=== PATIENT | male | born 1965 | race Caucasian/White ===

== ENCOUNTER 2019-01-05 09:44 | Inpatient (IN) | payer OTHER ==
[2019-01-05 09:44] VITALS: BMI 23.8
--- NOTE | 2019-01-05 10:24 | C.PDOC ---
History Of Present Illness 53-year-old male presents to the ED complaining of worsening right knee pain, onset 6 days ago. Patient states he fell onto his right knee on 12/30/18, and since has had knee pain and been unable to walk. [place] [facility] [place] x- [place] and was told it was negative. Patient continued to have pain and saw his PMD, Dr. Haider Olivares who sent him for outpatient MRI. Per patient, he was told to come to this ED for hospital admission. He is unsure of other history. No other injuries. Patient otherwise denies any chest pain, SOB, fevers, chills, or other complaints. Time Seen by Provider: 01/05/19 10:05 Chief Complaint (Nursing): Lower Extremity Problem/Injury History Per: Patient History/Exam Limitations: no limitations Onset/Duration Of Symptoms: Days Current Symptoms Are (Timing): Still Present Past Medical History Reviewed: Historical Data, Nursing Documentation, Vital Signs Vital Signs: Last Vital Signs Temp 98.1 F 01/05/19 09:47 Pulse 122 H 01/05/19 09:47 Resp 20 01/05/19 09:47 BP 185/98 H 01/05/19 09:47 Pulse Ox 99 01/05/19 09:47 - Medical History PMH: Diabetes, Pneumonia Family History: States: Unknown Family Hx - Social History Hx Tobacco Use: No Hx Alcohol Use: No Hx Substance Use: No - Immunization History Hx Tetanus Toxoid Vaccination: No Hx Influenza Vaccination: No Hx Pneumococcal Vaccination: No Review Of Systems Constitutional: Negative for: Fever, Chills Cardiovascular: Negative for: Chest Pain Respiratory: Negative for: Shortness of Breath Musculoskeletal: Positive for: Leg Pain (right knee) Skin: Negative for: Rash Neurological: Negative for: Weakness, Numbness Physical Exam - Physical Exam Appears: Well, Non-toxic, No Acute Distress Skin: Warm, Other (Vitiligo) Head: Atraumatic, Normacephalic Eye(s): bilateral: Normal Inspection Oral Mucosa: Moist Neck: Normal ROM Chest: Symmetrical Cardiovascular: Rhythm Regular, No Murmur Respiratory: Normal Breath Sounds, No Rales, No Rhonchi, No Wheezing Gastrointestinal/Abdominal: Bowel Sounds (active), Soft, No Tenderness, No Guarding Extremity: Right: Other (Right knee with immobilizer in place, no apparent ecchymosis, (+) mild swelling anteriorly), Bilateral: Normal Color And Temperature Pulses: Left Dorsalis Pedis: Normal, Right Dorsalis Pedis: Normal Neurological/Psych: Oriented x3, Normal Speech Gait: Unable To Assess ED Course And Treatment - Laboratory Results Result Diagrams: 01/05/19 11:09 01/05/19 11:09 ECG: Interpreted By Me ECG Rhythm: Sinus Rhythm ECG Interpretation: Normal Rate From EC O2 Sat by Pulse Oximetry: 99 (RA) Pulse Ox Interpretation: Normal Medical Decision Making Medical Decision Making: Impression: Right knee pain Plan: Patient assessed and examined. Orders placed in for blood work and EKG. Urine collected and sent to lab for analysis. Progress: 10:[address] Haider Olivares, who states patient has a patellar fracture. Requesting MRI and hospitalization, with Dr. Mensah for ortho consult. Disposition - Disposition Disposition: HOSPITALIZED Disposition Time: 12:15 Condition: STABLE - POA Present On Arrival: None - Clinical Impression Clinical Impression: Right patella fracture - PA / SKI MOLDER / Resident Statement MD/DO has reviewed & agrees with the documentation as recorded. - Scribe Statement The provider has reviewed the documentation as recorded by the Scribe Ann Marie Mccann All medical record entries made by the Adamibroberto were at my direction and personally dictated by me. I have reviewed the chart and agree that the record accurately reflects my personal performance of the history, physical exam, medical decision making, and the department course for this patient. I have also personally directed, reviewed, and agree with the discharge instructions and disposition.
[2019-01-05 11:19] LABS: BASO # 0.1 K/uL (0.0-0.2); BASO % 0.6 % (0.0-2.0); EOS # 0.2 K/uL (0.0-0.7); EOS % 2.2 % (0.0-4.0); HEMOGLOBIN 14.1 g/dL (12.0-18.0); LYMPH # 1.3 K/uL (1.0-4.3); LYMPH % 13.3 % (20.0-40.0); MEAN CELL VOLUME 81.8 fL (80.0-94.0); MEAN CORPUSCULAR HEMOGLOBIN 26.7 pg (27.0-31.0); MEAN CORPUSCULAR HGB CONC 32.7 g/dL (33.0-37.0); MEAN PLATELET VOLUME 8.8 fL (7.2-11.7); MONO # 0.6 K/uL (0.0-0.8); MONO % 5.7 % (0.0-10.0); NEUT # 7.7 K/uL (1.8-7.0); NEUT % 78.2 % (50.0-75.0); NRBC % 0.1 % (0.0-2.0); RBC 5.26 Mil/uL (4.40-5.90); RED CELL DISTRIBUTION WIDTH 13.9 % (11.5-14.5); WHITE BLOOD COUNT 9.9 K/uL (4.8-10.8)
[2019-01-05 11:22] LABS: SQUAMOUS EPITHIAL < 1 /hpf (0-5); URINE BILIRUBIN NEGATIVE (NEGATIVE); URINE BLOOD NEGATIVE (NEGATIVE); URINE CLARITY Clear (Clear); URINE COLOR Yellow (YELLOW); URINE GLUCOSE (UA) 3+ mg/dL (Normal); URINE LEUKOCYTE ESTERASE NEG Leu/uL (Negative); URINE PROTEIN NEGATIVE (NEGATIVE); URINE UROBILINOGEN NORMAL mg/dL (0.2-1.0)
[2019-01-05 11:43] LABS: ALB/GLOB RATIO 1.5 (1.0-2.1); ALBUMIN 4.5 g/dL (3.5-5.0); ALT/SGPT 16 U/L (21-72); AST/SGOT 21 U/L (17-59); BLOOD UREA NITROGEN 14 mg/dL (9-20); CALCIUM 10.1 mg/dl (8.6-10.4); GFR NON-AFRICAN AMERICAN > 60
--- NOTE | 2019-01-05 15:04 | CP.PCM.HP ---
Past Patient History - Infectious Disease Hx of Infectious Diseases: None - Past Medical History & Family History Past Medical History?: Yes - Past Social History Smoking Status: Never Smoked - PULMONARY Hx Pneumonia: Yes - ENDOCRINE/METABOLIC Hx Diabetes Mellitus Type 2: Yes - HEMATOLOGICAL/ONCOLOGICAL Hx Cancer: Yes (lung) - MUSCULOSKELETAL/RHEUMATOLOGICAL Hx Falls: No - PSYCHIATRIC Hx Substance Use: No - SURGICAL HISTORY Hx Surgeries: No - ANESTHESIA Hx Anesthesia: No Hx Anesthesia Reactions: No Meds Allergies/Adverse Reactions: Allergies Allergy/AdvReac Type Severity Reaction Status Date / Time No Known Allergies Allergy Verified 01/05/19 09:49 Physical Exam - Constitutional Appears: Well - Head Exam Head Exam: ATRAUMATIC, NORMAL INSPECTION, NORMOCEPHALIC - Eye Exam Eye Exam: EOMI, Normal appearance, PERRL Pupil Exam: NORMAL ACCOMODATION, PERRL - ENT Exam ENT Exam: Mucous Membranes Moist, Normal Exam - Neck Exam Neck exam: Positive for: Normal Inspection - Respiratory Exam Respiratory Exam: Decreased Breath Sounds - Cardiovascular Exam Cardiovascular Exam: REGULAR RHYTHM, +S1, +S2 - GI/Abdominal Exam GI & Abdominal Exam: Diminished Bowel Sounds, Soft - Rectal Exam Rectal Exam: Deferred Results - Vital Signs Recent Vital Signs: Last Vital Signs Temp 98.0 F 01/05/19 14:50 Pulse 90 01/05/19 14:50 Resp 20 01/05/19 14:50 BP 145/87 01/05/19 14:50 Pulse Ox 98 01/05/19 14:50 - Labs Result Diagrams: 01/05/19 11:09 01/05/19 11:09 Labs: Laboratory Results - last 24 hr 01/05/19 01/05/19 01/05/19 11:09 11:09 11:09 WBC 9.9 RBC 5.26 Hgb 14.1 Hct 43.0 MCV 81.8 D MCH 26.7 L MCHC 32.7 L RDW 13.9 Plt Count 286 MPV 8.8 Neut % (Auto) 78.2 H Lymph % (Auto) 13.3 L Teller % (Auto) 5.7 Eos % (Auto) 2.2 Baso % (Auto) 0.6 Neut # (Auto) 7.7 H Lymph # (Auto) 1.3 Teller # (Auto) 0.6 Eos # (Auto) 0.2 Baso # (Auto) 0.1 PT 11.0 INR 1.0 APTT 36 H Sodium Potassium Chloride Carbon Dioxide Anion Gap BUN Creatinine Est GFR ( Amer) Est GFR (Non-Af Amer) Random Glucose Calcium Total Bilirubin AST ALT Alkaline Phosphatase Total Protein Albumin Globulin Albumin/Globulin Ratio Urine Color Yellow Urine Clarity Clear Urine pH 5.0 Ur Specific Waldron 1.020 Urine Protein Negative Urine Glucose (UA) 3+ H Urine Ketones Trace Urine Blood Negative Urine Nitrate Negative Urine Bilirubin Negative Urine Urobilinogen Normal Ur Leukocyte Esterase Neg Urine WBC (Auto) 2 Urine RBC (Auto) < 1 Ur Squamous Epith Cells < 1 Blood Type Antibody Screen 01/05/19 01/05/19 11:09 11:09 WBC RBC Hgb Hct MCV MCH MCHC RDW Plt Count MPV Neut % (Auto) Lymph % (Auto) Teller % (Auto) Eos % (Auto) Baso % (Auto) Neut # (Auto) Lymph # (Auto) Teller # (Auto) Eos # (Auto) Baso # (Auto) PT INR APTT Sodium 136 Potassium 4.4 Chloride 101 Carbon Dioxide 23 Anion Gap 18 BUN 14 Creatinine 0.6 L Est GFR ( Amer) > 60 Est GFR (Non-Af Amer) > 60 Random Glucose 226 H Calcium 10.1 Total Bilirubin 0.5 AST 21 ALT 16 L D Alkaline Phosphatase 86 Total Protein 7.4 Albumin 4.5 Globulin 2.9 Albumin/Globulin Ratio 1.5 Urine Color Urine Clarity Urine pH Ur Specific [place]ron Urine Protein Urine Glucose (UA) Urine Ketones Urine Blood Urine Nitrate Urine Bilirubin Urine Urobilinogen Ur Leukocyte Esterase Urine WBC (Auto) Urine RBC (Auto) Ur Squamous Epith Cells Blood Type A POSITIVE Antibody Screen Negative
[2019-01-05] MEDS: Naproxen 550 mg Tab PO SCH (21:37)
[2019-01-06] MEDS: Naproxen 550 mg Tab PO SCH ×2 (09:15→21:20)
[2019-01-06] MEDS: Pantoprazole 40 mg EC Tab PO SCH (09:15)
[2019-01-06] MEDS ORDERED: Enoxaparin 40 mg Syringe SC SCH (10:00)
--- NOTE | 2019-01-06 12:43 | CARD ---
APPROVED REPORT Date of service: 01/05/2019 EKG Measurement Heart [id number] <Conclusion> Normal sinus rhythm Normal ECG
--- NOTE | 2019-01-06 15:56 | CP.PCM.CON ---
History of Present Illness - History of Present Illness History of Present Illness: Orthopedic consult: Dr. Maravilla Patient is a 53 y/o male who c/o R knee pain and instability. The patient reports a fall injury at home on 12/30/18 resulting in a severe twisting of his RLE. He was able to get up but unable to ambulate due his knee "coming out of place". He presented to [facility], xrays were taken negative for acute fracture and discharged with knee immobilizer to f/u with PMDIgnacio MD. Dr. Olivares sent him for MRI of his R knee. He presented to [facility] ER due to severe pain over past few days. The pain is diffuse and dull in quality. He denies any radiation of pain/numbness/tingling. He requires ambulation with crutches. He currently denies CP/SOB/N/V/D/fever/dysuria/melena. PMH: NIDDM, TB PSH: denies meds: as per med rec allergy NKDA SH: denies tobacco/ETOH/drug use Review of Systems - Review of Systems All systems: reviewed and no additional remarkable complaints except Review of Systems: as per HPI Past Patient History - Infectious Disease Hx of Infectious Diseases: None - Past Medical History & Family History Past Medical History?: Yes Past Family History: Reviewed and not pertinent - Past Social History Smoking Status: Never Smoked - CARDIAC Hx Cardiac Disorders: No - PULMONARY Hx Respiratory Disorders: Yes Hx Pneumonia: Yes Hx Tuberculosis: Yes - NEUROLOGICAL Hx Neurological Disorder: No - HEENT Hx HEENT Problems: No - RENAL Hx Chronic Kidney Disease: No - ENDOCRINE/METABOLIC Hx Endocrine Disorders: Yes Hx Diabetes Mellitus Type 2: Yes - HEMATOLOGICAL/ONCOLOGICAL Hx Blood Disorders: Yes Hx Cancer: Yes (lung) - INTEGUMENTARY Hx Dermatological Problems: No - MUSCULOSKELETAL/RHEUMATOLOGICAL Hx Falls: Yes - GASTROINTESTINAL Hx Gastrointestinal Disorders: No - GENITOURINARY/GYNECOLOGICAL Hx Genitourinary Disorders: No - PSYCHIATRIC Hx Substance Use: No - SURGICAL HISTORY Hx Surgeries: No - ANESTHESIA Hx Anesthesia: No Hx Anesthesia Reactions: No Hx Malignant Hyperthermia: No Has any member of the family had a problem w/ anesthesia?: No Meds Allergies/Adverse Reactions: Allergies Allergy/AdvReac Type Severity Reaction Status Date / Time No Known Allergies Allergy Verified 01/05/19 09:49 - Medications Medications: Current Medications Glimepiride (Amaryl) 4 mg PO ACB [facility] Last Admin: 01/06/19 08:30 Dose: 4 mg Hydromorphone HCl (Dilaudid) 2 mg IVP Q8H PRN PRN Reason: Pain, severe (8-10) Influenza Virus Vaccine (Flucelvax Quad [id number] Syr) 60 mcg IM .ONCE ONE Stop: 01/07/19 10:01 Metformin HCl (Glucophage) 850 mg PO BID [facility] Last Admin: 01/06/19 09:15 Dose: 850 mg Naproxen (Anaprox Ds) 550 mg PO Q12 [facility] Last Admin: 01/06/19 09:15 Dose: 550 mg Pantoprazole Sodium (Protonix Ec Tab) 40 mg PO DAILY [facility] Last Admin: 01/06/19 09:15 Dose: 40 mg Pneumococcal Polyvalent Vaccine (Pneumovax 23 Vaccine) 0.5 ml IM .ONCE ONE Stop: 01/07/19 10:01 Rosuvastatin Calcium (Crestor) 10 mg PO HS [facility] Last Admin: 01/05/19 21:23 Dose: 10 mg Sitagliptin Phosphate (Januvia) 100 mg PO DAILY [facility] Last Admin: 01/06/19 09:18 Dose: 100 mg Physical Exam - Constitutional Appears: Well, No Acute Distress - Head Exam Head Exam: ATRAUMATIC, NORMOCEPHALIC - Eye Exam Eye Exam: EOMI, Normal appearance - ENT Exam ENT Exam: Mucous Membranes Moist - Respiratory Exam Respiratory Exam: NORMAL BREATHING PATTERN - Extremities Exam Additional comments: R knee: knee imm in place no lesions/swelling/erythema diffuse medial tenderness, tenderness over distal quad, no lateral/patella/patella tendon tenderness +2 opening medially on valgus stress, no opening laterally + Lachmans, +anterior and posterior drawer sensation intact SP/DP/TN motor intact EHL/FHL/TA/G pedal pulse intact calves soft NT B/l L knee: no lesions/swelling/erythema no tenderness all ligaments intact sensation intact SP/DP/TN motor intact EHL/FHL/TA/G pedal pulse intact calves soft NT B/l - Neurological Exam Neurological exam: Alert, Oriented x3 - Psychiatric Exam Psychiatric exam: Normal Affect, Normal Mood - Skin Skin Exam: Normal Color, Warm Results - Vital Signs Recent Vital Signs: Last Vital Signs Temp 97.8 F 01/06/19 08:00 Pulse 79 01/06/19 08:00 Resp 20 01/06/19 08:00 BP 130/87 01/06/19 08:00 Pulse Ox 96 01/06/19 08:00 - Labs Result Diagrams: 01/05/19 11:09 01/05/19 11:09 Labs: Laboratory Results - last 24 hr 01/05/19 01/05/19 01/06/19 16:11 21:32 06:13 POC Glucose (mg/dL) 175 H 164 H 152 H 01/06/19 10:56 POC Glucose (mg/dL) 243 H - Impressions Impression: MRI from [facility] reveals multiligament complete rupture including ACL, PCL and MCL Assessment & Plan (1) Dislocation, knee Assessment and Plan: Patient with multi-ligament tears (ACL/PCL/MCL) -obtain postop hinged knee brace locked at 0 degrees, out sourced DME -CT angio of RLE to r/o arterial injury -NWB RLE, strict knee imm for now -no acute orthopedic surgical intervention needed at this time, ligament repairs can be performed as outpatient -above d/w Dr. Maravilla in agreement Status: Acute - Date & Time Date: 01/06/19 Time: 13:00
--- NOTE | 2019-01-06 16:19 | MRI ---
Date of service: 01/06/2019 PROCEDURE: MRI Right Knee HISTORY: Right knee injury evaluate for patellar fracture COMPARISON: No prior similar study available for comparison TECHNIQUE: Multiecho multiplanar sequences were performed through the right knee. FINDINGS: ANTERIOR CRUCIATE LIGAMENT:: There is complete tear of the anterior cruciate ligament. POSTERIOR CRUCIATE LIGAMENT:: There is also partial to complete tear of the posterior cruciate ligament MEDIAL MENISCUS:: Intact. LATERAL MENISCUS:: Small tear at the anterior aspect of the lateral meniscus body noted. MEDIAL COLLATERAL LIGAMENT:: There high-grade/grade 4 medial collateral ligament tear noted. LATERAL COLLATERAL LIGAMENT COMPLEX:: There is mild grade 1 lateral collateral ligament tear noted. QUADRICEPS TENDON:: Intact. PATELLAR TENDON:: Intact. CARTILAGE:: Moderate patellar chondromalacia and foci of cartilage defect noted in the knee. JOINT FLUID:: There is moderate-size joint effusion noted. OSSEOUS STRUCTURES:: No evidence of patellar fracture. Soft tissue edema noted at the mid and lateral aspect of the right tibial plateau to likely represent bone contusion. There also small bone marrow edema at the lateral femoral condyle. OTHER FINDINGS: There is thickening of the synovial tissue noted in the anterior aspect of the right knee joint. Heterogeneous signal in the of month fat is also noted. There is anom-ur-abyyisli soft tissue edema around the right knee. IMPRESSION: Complete tear of the anterior and posterior cruciate ligaments. Moderate-sized joint effusion. No evidence of bone marrow edema in the right patella. Foci of bone marrow edema noted at the right tibial plateau and right lateral femoral condyle likely represent bone contusion. Moderate osteoarthritic degenerative changes.
[2019-01-06] MEDS ORDERED: Iodixanol 320 mg/ml 150 ml Bottle IV ONE (19:07)
--- NOTE | 2019-01-06 19:35 | CP.PCM.PN ---
Subjective - Date & Time of Evaluation Date of Evaluation: 01/06/19 Time of Evaluation: 09:00 - Subjective Subjective: clinically same Objective - Vital Signs/Intake and Output Vital Signs (last 24 hours): Temp Pulse Resp BP Pulse Ox 97.8 F 84 20 149/87 95 01/06/19 15:00 01/06/19 15:00 01/06/19 15:00 01/06/19 15:00 01/06/19 15:00 - Medications Medications: Current Medications Glimepiride (Amaryl) 4 mg PO ACB [facility] Last Admin: 01/06/19 08:30 Dose: 4 mg Hydromorphone HCl (Dilaudid) 2 mg IVP Q8H PRN PRN Reason: Pain, severe (8-10) Influenza Virus Vaccine (Flucelvax Quad 6646-9215 Syr) 60 mcg IM .ONCE ONE Stop: 01/07/19 10:01 Metformin HCl (Glucophage) 850 mg PO BID [facility] Last Admin: 01/06/19 18:16 Dose: 850 mg Naproxen (Anaprox Ds) 550 mg PO Q12 [facility] Last Admin: 01/06/19 09:15 Dose: 550 mg Pantoprazole Sodium (Protonix Ec Tab) 40 mg PO DAILY [facility] Last Admin: 01/06/19 09:15 Dose: 40 mg Pneumococcal Polyvalent Vaccine (Pneumovax 23 Vaccine) 0.5 ml IM .ONCE ONE Stop: 01/07/19 10:01 Rosuvastatin Calcium (Crestor) 10 mg PO HS [facility] Last Admin: 01/05/19 21:23 Dose: 10 mg Sitagliptin Phosphate (Januvia) 100 mg PO DAILY [facility] Last Admin: 01/06/19 09:18 Dose: 100 mg - Labs Labs: 01/05/19 11:09 01/05/19 11:09 PT 11.0 SECONDS (9.7-12.2) 01/05/19 11:09 INR 1.0 01/05/19 11:09 APTT 36 SECONDS (21-34) H 01/05/19 11:09 - Constitutional Appears: Well - Head Exam Head Exam: ATRAUMATIC, NORMAL INSPECTION, NORMOCEPHALIC - Eye Exam Eye Exam: EOMI, Normal appearance, PERRL Pupil Exam: NORMAL ACCOMODATION, PERRL - ENT Exam ENT Exam: Mucous Membranes Moist, Normal Exam - Neck Exam Neck Exam: Full ROM, Normal Inspection. absent: Lymphadenopathy - Respiratory Exam Respiratory Exam: Decreased Breath Sounds - Cardiovascular Exam Cardiovascular Exam: REGULAR RHYTHM, +S1, +S2 - GI/Abdominal Exam GI & Abdominal Exam: Soft, Diminished Bowel Sounds - Rectal Exam Rectal Exam: Deferred
[2019-01-07 06:51] LABS: BASO # 0.1 K/uL (0.0-0.2); BASO % 0.6 % (0.0-2.0); EOS # 0.4 K/uL (0.0-0.7); EOS % 4.4 % (0.0-4.0); HEMOGLOBIN 13.3 g/dL (12.0-18.0); LYMPH # 1.3 K/uL (1.0-4.3); LYMPH % 13.7 % (20.0-40.0); MEAN CELL VOLUME 81.4 fL (80.0-94.0); MEAN CORPUSCULAR HEMOGLOBIN 26.6 pg (27.0-31.0); MEAN CORPUSCULAR HGB CONC 32.6 g/dL (33.0-37.0); MEAN PLATELET VOLUME 8.2 fL (7.2-11.7); MONO # 0.7 K/uL (0.0-0.8); MONO % 7.1 % (0.0-10.0); NEUT # 7.1 K/uL (1.8-7.0); NEUT % 74.2 % (50.0-75.0); RED CELL DISTRIBUTION WIDTH 14.2 % (11.5-14.5); WHITE BLOOD COUNT 9.6 K/uL (4.8-10.8)
[2019-01-07 07:33] LABS: ALB/GLOB RATIO 1.5 (1.0-2.1); ALBUMIN 3.9 g/dL (3.5-5.0); ALT/SGPT 23 U/L (21-72); AST/SGOT 15 U/L (17-59); BLOOD UREA NITROGEN 14 mg/dL (9-20); CALCIUM 9.2 mg/dl (8.6-10.4); GFR NON-AFRICAN AMERICAN > 60
[2019-01-07] MEDS: Pantoprazole 40 mg EC Tab PO SCH (09:49)
[2019-01-07] MEDS: Naproxen 550 mg Tab PO SCH ×2 (09:49→21:26)
[2019-01-07] MEDS ORDERED: Pneumococcal 23-Valent Vaccine IM ONE (10:00)
[2019-01-07] MEDS ORDERED: Influenza Vaccine 60 mcg/0.5 mL SYR (4YR UP) IM ONE (10:00)
--- NOTE | 2019-01-07 12:49 | CT ---
Date of service: 01/06/2019 PROCEDURE: CT Angiography Abdomen, Pelvis and Lower Extremity with Contrast HISTORY: R knee multi ligament tear, r/o arterial injury COMPARISON: None available. TECHNIQUE: Technique: CT angiography of the abdomen, pelvis and bilateral lower extremities performed in the arterial phase of enhancement. Coronal and sagittal reformats, and well as rotating MIP images of the vessels generated at the workstation. Intravenous contrast dose: 50 milliliters Visipaque 320 Radiation dose: Total exam DLP = 1459.4 mGy-cm. This CT exam was performed using one or more of the following dose reduction techniques: Automated exposure control, adjustment of the mA and/or kV according to patient size, and/or use of iterative reconstruction technique. FINDINGS: CT ANGIOGRAPHY: ABDOMINAL AORTA:: The abdominal is unremarkable. There is no arthrosclerotic disease. MAJOR AORTIC BRANCHES: Celiac [place]: Unremarkable. Superior mesenteric artery: Unremarkable. Inferior mesenteric artery: Unremarkable. Renal arteries: Unremarkable. PELVIC ARTERIES: Right Common Iliac: Unremarkable. Right External Iliac: Unremarkable. Right Internal Iliac: Unremarkable. Left Common Iliac: Unremarkable. Left External Iliac: Unremarkable. Left Internal Iliac: Unremarkable. RIGHT LOWER EXTREMITY ARTERIES: Right Common Femoral: Unremarkable. Right Superficial Femoral: Unremarkable. Right Profunda Femoris: Unremarkable. Right Popliteal:Unremarkable. Right Anterior Tibial: Unremarkable. Right Tibioperoneal Trunk: Unremarkable. Right Posterior Tibial: Unremarkable. Right Peroneal: Unremarkable. Right dorsalis pedis : Unremarkable. LEFT LOWER EXTREMITY ARTERIES: Left Common Femoral: Unremarkable. Left Superficial Femoral: Unremarkable. Left Profunda Femoris: Unremarkable. Left Popliteal: Unremarkable. Left Anterior Tibial: Unremarkable. Left Tibioperoneal Trunk: Unremarkable. Left Posterior Tibial: Unremarkable. Left Peroneal: Unremarkable. Left Dorsalis pedis: Unremarkable. NON-ANGIOGRAPHIC ASPECT OF THE EXAM: LOWER THORAX: Unremarkable. LIVER: Unremarkable. No gross lesion or ductal dilatation. GALLBLADDER AND BILE DUCTS: Unremarkable. PANCREAS: Unremarkable. No gross lesion or ductal dilatation. SPLEEN: Unremarkable. ADRENALS: Unremarkable. No mass. KIDNEYS AND URETERS: Unremarkable. No hydronephrosis. No solid mass. STOMACH AND BOWEL: Unremarkable. No obstruction. No gross mural thickening. APPENDIX: Normal appendix. PERITONEUM: Unremarkable. No free fluid. No free air. LYMPH NODES: Unremarkable. No enlarged lymph nodes. BLADDER: Unremarkable. REPRODUCTIVE: Unremarkable. BONES: No acute fracture. OTHER FINDINGS: None. IMPRESSION: Unremarkable CT angiogram of the abdomen, pelvis, right and left lower extremity. There is no evidence of peripheral disease.
--- NOTE | 2019-01-07 17:37 | CP.PCM.PN ---
Subjective - Date & Time of Evaluation Date of Evaluation: 01/07/19 Time of Evaluation: 09:00 - Subjective Subjective: clinically same Objective - Vital Signs/Intake and Output Vital Signs (last 24 hours): Temp Pulse Resp BP Pulse Ox 98.1 F 76 20 131/80 97 01/07/19 16:30 01/07/19 16:30 01/07/19 16:30 01/07/19 16:30 01/07/19 16:30 Intake and Output: 01/07/19 01/07/19 06:59 18:59 Output Total 200 Balance -200 - Medications Medications: Current Medications Glimepiride (Amaryl) 4 mg PO ACB [facility] Last Admin: 01/07/19 08:05 Dose: 4 mg Hydromorphone HCl (Dilaudid) 2 mg IVP Q8H PRN PRN Reason: Pain, severe (8-10) Metformin HCl (Glucophage) 850 mg PO BID [facility] Last Admin: 01/06/19 18:16 Dose: 850 mg Naproxen (Anaprox Ds) 550 mg PO Q12 [facility] Last Admin: 01/07/19 09:49 Dose: 550 mg Pantoprazole Sodium (Protonix Ec Tab) 40 mg PO DAILY [facility] Last Admin: 01/07/19 09:49 Dose: 40 mg Rosuvastatin Calcium (Crestor) 10 mg PO HS [facility] Last Admin: 01/06/19 21:20 Dose: 10 mg Sitagliptin Phosphate (Januvia) 100 mg PO DAILY [facility] Last Admin: 01/07/19 09:49 Dose: 100 mg - Labs Labs: 01/07/19 06:34 01/07/19 06:34 PT 11.0 SECONDS (9.7-12.2) 01/05/19 11:09 INR 1.0 01/05/19 11:09 APTT 36 SECONDS (21-34) H 01/05/19 11:09 - Constitutional Appears: Well - Head Exam Head Exam: ATRAUMATIC, NORMAL INSPECTION, NORMOCEPHALIC - Eye Exam Eye Exam: EOMI, Normal appearance, PERRL Pupil Exam: NORMAL ACCOMODATION, PERRL - ENT Exam ENT Exam: Mucous Membranes Moist, Normal Exam - Neck Exam Neck Exam: Full ROM, Normal Inspection. absent: Lymphadenopathy - Respiratory Exam Respiratory Exam: Decreased Breath Sounds - Cardiovascular Exam Cardiovascular Exam: REGULAR RHYTHM, +S1, +S2 - GI/Abdominal Exam GI & Abdominal Exam: Soft, Diminished Bowel Sounds - Rectal Exam Rectal Exam: Deferred
--- NOTE | 2019-01-07 19:14 | CP.PCM.PN ---
Subjective - Date & Time of Evaluation Date of Evaluation: 01/07/19 Time of Evaluation: 19:14 - Subjective Subjective: Patient seen and examined at bedside comfortable. Pain well controlled. No new complaints. Received CT angio without complications. Objective - Vital Signs/Intake and Output Vital Signs (last 24 hours): Temp Pulse Resp BP Pulse Ox 98.1 F 76 20 131/80 97 01/07/19 16:30 01/07/19 16:30 01/07/19 16:30 01/07/19 16:30 01/07/19 16:30 Intake and Output: 01/07/19 01/08/19 18:59 06:59 Output Total 200 Balance -200 - Medications Medications: Current Medications Glimepiride (Amaryl) 4 mg PO ACB [facility] Last Admin: 01/07/19 08:05 Dose: 4 mg Hydromorphone HCl (Dilaudid) 2 mg IVP Q8H PRN PRN Reason: Pain, severe (8-10) Metformin HCl (Glucophage) 850 mg PO BID [facility] Last Admin: 01/06/19 18:16 Dose: 850 mg Naproxen (Anaprox Ds) 550 mg PO Q12 [facility] Last Admin: 01/07/19 09:49 Dose: 550 mg Pantoprazole Sodium (Protonix Ec Tab) 40 mg PO DAILY [facility] Last Admin: 01/07/19 09:49 Dose: 40 mg Rosuvastatin Calcium (Crestor) 10 mg PO HS [facility] Last Admin: 01/06/19 21:20 Dose: 10 mg Sitagliptin Phosphate (Januvia) 100 mg PO DAILY [facility] Last Admin: 01/07/19 09:49 Dose: 100 mg - Labs Labs: 01/07/19 06:34 01/07/19 06:34 PT 11.0 SECONDS (9.7-12.2) 01/05/19 11:09 INR 1.0 01/05/19 11:09 APTT 36 SECONDS (21-34) H 01/05/19 11:09 - Extremities Exam Additional comments: R knee: knee imm in place no lesions/swelling/erythema diffuse medial tenderness, tenderness over distal quad, no lat eral/patella/patella tendon tenderness +2 opening medially on valgus stress, no opening laterally + Lachmans, +anterior and posterior drawer sensation intact SP/DP/TN motor intact EHL/FHL/TA/G pedal pulse intact calves soft NT B/l Assessment and Plan (1) Dislocation, knee Assessment & Plan: CT angio LE negative for any arterial injury Strict knee immobilizer until postop hinged knee brace obtained PT/OT WBAT Will follow up with orthopedic physician for definitive care for muli-ligament tear, elective procedure orthopedically stable for discharge once brace received above d/w Dr. Burton in agreement Status: Acute
--- NOTE | 2019-01-08 07:15 | CP.PCM.PN ---
Subjective - Date & Time of Evaluation Date of Evaluation: 01/08/19 Time of Evaluation: 17:48 - Subjective Subjective: Medicine Note for Dr. Mik Serrano Patient is a 53 year old male with PMHx of Diabetes, TB, and HLD who presents for knee pain s/p fall at home. Patient states he twisted his knee and was able to get up nor ambulate. He presented to [facility] [place]; Radiographs were negative for fractures or dislocations so patient was sent home. MRI was ordered by PMD (Dr. Mki serrano) which showed complete tear of ACL/PCL, grade 4 tear of MCL, grade 1 LCL tear, and minor ant. tear of the lateral meniscus. He presents to [facility] wanting his knee repaired. ROS POSITIVES: Right Knee Pain NEGATIVES: Fever, Chills, SOB, Chest Pain, abdominal pain, n/v, changes in bowel habits, urinary symptoms. PMHx: TB, DM, HLD PSHx: Denies Allergies: NKDA SocialHx: Denies tobacco, EtoH, and Illicit Drug Use FamHx: Denies and Non-Cont. Meds: Per MAR Objective - Vital Signs/Intake and Output Vital Signs (last 24 hours): Temp Pulse Resp BP Pulse Ox 97.3 F L 83 20 122/82 99 01/08/19 00:00 01/08/19 00:00 01/08/19 00:00 01/08/19 00:00 01/08/19 00:00 Intake and Output: 01/08/19 01/08/19 06:59 18:59 Intake Total 0 Balance 0 - Medications Medications: Current Medications Glimepiride (Amaryl) 4 mg PO ACB [facility] Last Admin: 01/07/19 08:05 Dose: 4 mg Hydromorphone HCl (Dilaudid) 2 mg IVP Q8H PRN PRN Reason: Pain, severe (8-10) Metformin HCl (Glucophage) 850 mg PO BID [facility] Last Admin: 01/06/19 18:16 Dose: 850 mg Naproxen (Anaprox Ds) 550 mg PO Q12 [facility] Last Admin: 01/07/19 21:26 Dose: 550 mg Pantoprazole Sodium (Protonix Ec Tab) 40 mg PO DAILY [facility] Last Admin: 01/07/19 09:49 Dose: 40 mg Rosuvastatin Calcium (Crestor) 10 mg PO HS [facility] Last Admin: 01/07/19 21:25 Dose: 10 mg Sitagliptin Phosphate (Januvia) 100 mg PO DAILY [facility] Last Admin: 01/07/19 09:49 Dose: 100 mg - Labs Labs: 01/07/19 06:34 01/07/19 06:34 PT 11.0 SECONDS (9.7-12.2) 01/05/19 11:09 INR 1.0 01/05/19 11:09 APTT 36 SECONDS (21-34) H 01/05/19 11:09 - Constitutional Appears: Well, Non-toxic, No Acute Distress - Head Exam Head Exam: ATRAUMATIC, NORMAL INSPECTION, NORMOCEPHALIC - Eye Exam Eye Exam: EOMI, Normal appearance - ENT Exam ENT Exam: Mucous Membranes Moist - Respiratory Exam Respiratory Exam: Clear to Ausculation Bilateral, NORMAL BREATHING PATTERN. absent: Accessory Muscle Use - Cardiovascular Exam Cardiovascular Exam: RRR, +S1, +S2. absent: JVD - GI/Abdominal Exam GI & Abdominal Exam: Soft, Normal Bowel Sounds. absent: Tenderness - Extremities Exam Extremities Exam: Normal Capillary Refill, Tenderness (Right knee). absent: Pedal Edema Additional comments: Knee Imm in place, no lesions, swelling, or erythema, - Neurological Exam Neurological Exam: Alert, Awake, Oriented x3. absent: Motor Sensory Deficit - Psychiatric Exam Psychiatric exam: Normal Affect, Normal Mood - Skin Skin Exam: Dry, Intact, Normal Color, Warm Assessment and Plan - Assessment and Plan (Free Text) Assessment: 53 year old male with PMHx of DM, TB, and HLD admitted for evaluation and treatment of Right ACL,PCL,MCL repair. Plan: Right Knee ACL,PCL,LCL tear Consult: Ortho (Dr. Cipriano Fay), Help appreciated Currently Awaiting Hinge Brace PT Mgmt: Dialudid 2mg IVP Q8H PRN Naproxen 550mg PO Q12H DM Mgmt: Home Glimepiride 4mg PO ACB Home Metformin 850mg PO BID (held) Home Januvia 100mg PO Daily HLD Mgmt: Home Crestor 10mg PO HS [facility] Proph Protonix Lovenox Dispo: Will F/U with Ortho about plan for any surgery.
--- NOTE | 2019-01-08 07:45 | CP.PCM.PN ---
Subjective - Date & Time of Evaluation Date of Evaluation: 01/08/19 Time of Evaluation: 07:45 - Subjective Subjective: Patient seen and examined at bedside. No acute changes overnight. Pain well controlled. Still awaiting hinged knee brace. Objective - Vital Signs/Intake and Output Vital Signs (last 24 hours): Temp Pulse Resp BP Pulse Ox 97.3 F L 83 20 122/82 99 01/08/19 00:00 01/08/19 00:00 01/08/19 00:00 01/08/19 00:00 01/08/19 00:00 Intake and Output: 01/08/19 01/08/19 06:59 18:59 Intake Total 0 Balance 0 - Medications Medications: Current Medications Glimepiride (Amaryl) 4 mg PO ACB [facility] Last Admin: 01/07/19 08:05 Dose: 4 mg Hydromorphone HCl (Dilaudid) 2 mg IVP Q8H PRN PRN Reason: Pain, severe (8-10) Metformin HCl (Glucophage) 850 mg PO BID [facility] Last Admin: 01/06/19 18:16 Dose: 850 mg Naproxen (Anaprox Ds) 550 mg PO Q12 [facility] Last Admin: 01/07/19 21:26 Dose: 550 mg Pantoprazole Sodium (Protonix Ec Tab) 40 mg PO DAILY [facility] Last Admin: 01/07/19 09:49 Dose: 40 mg Rosuvastatin Calcium (Crestor) 10 mg PO HS [facility] Last Admin: 01/07/19 21:25 Dose: 10 mg Sitagliptin Phosphate (Januvia) 100 mg PO DAILY [facility] Last Admin: 01/07/19 09:49 Dose: 100 mg - Labs Labs: 01/07/19 06:34 01/07/19 06:34 PT 11.0 SECONDS (9.7-12.2) 01/05/19 11:09 INR 1.0 01/05/19 11:09 APTT 36 SECONDS (21-34) H 01/05/19 11:09 - Extremities Exam Additional comments: R knee: knee imm in place no lesions/swelling/erythema diffuse medial tenderness, tenderness over distal quad, no lateral/patella/p atella tendon tenderness +2 opening medially on valgus stress, no opening laterally + Lachmans, +anterior and posterior drawer sensation intact SP/DP/TN motor intact EHL/FHL/TA/G pedal pulse intact calves soft NT B/l Assessment and Plan (1) Dislocation, knee Assessment & Plan: Strict knee immobilizer until postop hinged knee brace obtained PT/OT WBAT Follow up with orthopedic physician allowed by his insurance for definitive care for multi-ligament tear (elective procedure) orthopedically stable for discharge once brace received above d/w Dr. Burton in agreement please reconsult as needed Status: Acute
[2019-01-08 07:58] LABS: BASO # 0.1 K/uL (0.0-0.2); BASO % 0.7 % (0.0-2.0); EOS # 0.5 K/uL (0.0-0.7); EOS % 5.8 % (0.0-4.0); HEMOGLOBIN 13.7 g/dL (12.0-18.0); LYMPH # 0.9 K/uL (1.0-4.3); LYMPH % 11.2 % (20.0-40.0); MEAN CELL VOLUME 82.2 fL (80.0-94.0); MEAN CORPUSCULAR HEMOGLOBIN 26.4 pg (27.0-31.0); MEAN CORPUSCULAR HGB CONC 32.1 g/dL (33.0-37.0); MEAN PLATELET VOLUME 8.6 fL (7.2-11.7); MONO # 0.6 K/uL (0.0-0.8); MONO % 7.7 % (0.0-10.0); NEUT # 6.2 K/uL (1.8-7.0); NEUT % 74.6 % (50.0-75.0); RBC 5.21 Mil/uL (4.40-5.90); RED CELL DISTRIBUTION WIDTH 14.2 % (11.5-14.5); WHITE BLOOD COUNT 8.3 K/uL (4.8-10.8)
[2019-01-08 08:40] LABS: ALB/GLOB RATIO 1.5 (1.0-2.1); ALT/SGPT 21 U/L (21-72); AST/SGOT 22 U/L (17-59); BLOOD UREA NITROGEN 14 mg/dL (9-20); CALCIUM 8.9 mg/dl (8.6-10.4); GFR NON-AFRICAN AMERICAN > 60
[2019-01-08] MEDS: Naproxen 550 mg Tab PO SCH ×2 (09:27→21:10)
[2019-01-08] MEDS: Pantoprazole 40 mg EC Tab PO SCH (09:27)
--- NOTE | 2019-01-08 19:32 | CP.PCM.PN ---
Subjective - Date & Time of Evaluation Date of Evaluation: 01/08/19 Time of Evaluation: 08:45 - Subjective Subjective: clinically same Objective - Vital Signs/Intake and Output Vital Signs (last 24 hours): Temp Pulse Resp BP Pulse Ox 97.9 F 82 20 129/83 98 01/08/19 15:00 01/08/19 15:00 01/08/19 15:00 01/08/19 15:00 01/08/19 15:00 - Medications Medications: Current Medications Enoxaparin Sodium (Lovenox) 40 mg SC DAILY [facility] Glimepiride (Amaryl) 4 mg PO ACB [facility] Last Admin: 01/08/19 08:49 Dose: 4 mg Hydromorphone HCl (Dilaudid) 2 mg IVP Q8H PRN PRN Reason: Pain, severe (8-10) Metformin HCl (Glucophage) 850 mg PO BID [facility] Last Admin: 01/06/19 18:16 Dose: 850 mg Naproxen (Anaprox Ds) 550 mg PO Q12 [facility] Last Admin: 01/08/19 09:27 Dose: 550 mg Pantoprazole Sodium (Protonix Ec Tab) 40 mg PO DAILY [facility] Last Admin: 01/08/19 09:27 Dose: 40 mg Rosuvastatin Calcium (Crestor) 10 mg PO HS [facility] Last Admin: 01/07/19 21:25 Dose: 10 mg Sitagliptin Phosphate (Januvia) 100 mg PO DAILY [facility] Last Admin: 01/08/19 09:27 Dose: 100 mg - Labs Labs: 01/08/19 07:52 01/08/19 07:52 PT 11.0 SECONDS (9.7-12.2) 01/05/19 11:09 INR 1.0 01/05/19 11:09 APTT 36 SECONDS (21-34) H 01/05/19 11:09 - Constitutional Appears: Well - Head Exam Head Exam: ATRAUMATIC, NORMAL INSPECTION, NORMOCEPHALIC - Eye Exam Eye Exam: EOMI, Normal appearance, PERRL Pupil Exam: NORMAL ACCOMODATION, PERRL - ENT Exam ENT Exam: Mucous Membranes Moist, Normal Exam - Neck Exam Neck Exam: Full ROM, Normal Inspection. absent: Lymphadenopathy - Respiratory Exam Respiratory Exam: Decreased Breath Sounds - Cardiovascular Exam Cardiovascular Exam: REGULAR RHYTHM, +S1, +S2 - GI/Abdominal Exam GI & Abdominal Exam: Soft, Diminished Bowel Sounds - Rectal Exam Rectal Exam: Deferred
[2019-01-09] MEDS ORDERED: Glucagon Recombinant 1 mg Inj IM PRN (09:32)
[2019-01-09] MEDS ORDERED: Dextrose 50% SYRINGE Inj (50 ml) IV PRN (09:32)
[2019-01-09] MEDS: Naproxen 550 mg Tab PO SCH ×2 (09:34→22:02)
[2019-01-09] MEDS: Enoxaparin 40 mg Syringe SC SCH (09:34)
[2019-01-09] MEDS: Pantoprazole 40 mg EC Tab PO SCH (09:34)
[2019-01-09] MEDS: Docusate-Senna 50 mg-8.6 mg Tab PO SCH (10:35)
[2019-01-09] MEDS: (Novolog) Insulin Aspart, Recombinant 100 u/ml 10 ml vial SC SCH ×2 (12:30→16:21)
--- NOTE | 2019-01-09 18:33 | CP.PCM.PN ---
Subjective - Date & Time of Evaluation Date of Evaluation: 01/09/19 Time of Evaluation: 08:00 - Subjective Subjective: clinically same Objective - Vital Signs/Intake and Output Vital Signs (last 24 hours): Temp Pulse Resp BP Pulse Ox 97.1 F L 71 20 132/80 97 01/09/19 16:27 01/09/19 16:27 01/09/19 16:27 01/09/19 16:27 01/09/19 16:27 Intake and Output: 01/09/19 01/09/19 06:59 18:59 Intake Total 600 Balance 600 - Medications Medications: Current Medications Dextrose (Dextrose 50% Inj) 0 ml IV STAT PRN; Protocol PRN Reason: Hypoglycemia Protocol Dextrose (Glutose 15) 0 gm PO ONCE PRN; Protocol PRN Reason: Hypoglycemia Protocol Enoxaparin Sodium (Lovenox) 40 mg SC DAILY [facility] Last Admin: 01/09/19 09:34 Dose: 40 mg Glimepiride (Amaryl) 4 mg PO ACB [facility] Last Admin: 01/09/19 08:11 Dose: 4 mg Glucagon (Glucagen Diagnostic Kit) 0 mg IM STAT PRN; Protocol PRN Reason: Hypoglycemia Protocol Hydromorphone HCl (Dilaudid) 2 mg IVP Q8H PRN PRN Reason: Pain, severe (8-10) Dextrose (Dextrose 5% In Water 1000 Ml) 1,000 mls @ 0 mls/hr IV .Q0M PRN; Protocol PRN Reason: Hypoglycemia Protocol Insulin Aspart (Novolog) 0 unit SC ACHS [facility]; Protocol Last Admin: 01/09/19 16:21 Dose: 2 u Metformin HCl (Glucophage) 850 mg PO BIDCC [facility] Last Admin: 01/09/19 16:23 Dose: 850 mg Naproxen (Anaprox Ds) 550 mg PO Q12 [facility] Last Admin: 01/09/19 09:34 Dose: 550 mg Pantoprazole Sodium (Protonix Ec Tab) 40 mg PO DAILY [facility] Last Admin: 01/09/19 09:34 Dose: 40 mg Rosuvastatin Calcium (Crestor) 10 mg PO HS [facility] Last Admin: 01/08/19 21:10 Dose: 10 mg Senna/Docusate Sodium (Senokot S 50 Mg-8.6 Mg) 1 tab PO DAILY [facility] Last Admin: 03/16/19 10:35 Dose: Not Given Sitagliptin Phosphate (Januvia) 100 mg PO DAILY [facility] Last Admin: 01/09/19 09:34 Dose: 100 mg - Labs Labs: 01/08/19 07:52 01/08/19 07:52 PT 11.0 SECONDS (9.7-12.2) 01/05/19 11:09 INR 1.0 01/05/19 11:09 APTT 36 SECONDS (21-34) H 01/05/19 11:09 - Constitutional Appears: Well - Head Exam Head Exam: ATRAUMATIC, NORMAL INSPECTION, NORMOCEPHALIC - Eye Exam Eye Exam: EOMI, Normal appearance, PERRL Pupil Exam: NORMAL ACCOMODATION, PERRL - ENT Exam ENT Exam: Mucous Membranes Moist, Normal Exam - Neck Exam Neck Exam: Full ROM, Normal Inspection. absent: Lymphadenopathy - Respiratory Exam Respiratory Exam: Decreased Breath Sounds - Cardiovascular Exam Cardiovascular Exam: REGULAR RHYTHM, +S1, +S2 - GI/Abdominal Exam GI & Abdominal Exam: Soft, Diminished Bowel Sounds - Rectal Exam Rectal Exam: Deferred
[2019-01-10] MEDS: (Novolog) Insulin Aspart, Recombinant 100 u/ml 10 ml vial SC SCH ×4 (08:17→21:34)
[2019-01-10] MEDS: Pantoprazole 40 mg EC Tab PO SCH (09:15)
[2019-01-10] MEDS: Naproxen 550 mg Tab PO SCH ×2 (09:15→21:35)
[2019-01-10] MEDS: Enoxaparin 40 mg Syringe SC SCH (09:16)
[2019-01-10] MEDS: Docusate-Senna 50 mg-8.6 mg Tab PO SCH (09:16)
--- NOTE | 2019-01-10 15:50 | CP.PCM.PN ---
Subjective - Date & Time of Evaluation Date of Evaluation: 01/10/19 Time of Evaluation: 08:15 - Subjective Subjective: clinically same Objective - Vital Signs/Intake and Output Vital Signs (last 24 hours): Temp Pulse Resp BP Pulse Ox 97.3 F L 65 20 133/84 99 01/10/19 08:22 01/10/19 08:22 01/10/19 08:22 01/10/19 08:22 01/10/19 08:22 - Medications Medications: Current Medications Dextrose (Dextrose 50% Inj) 0 ml IV STAT PRN; Protocol PRN Reason: Hypoglycemia Protocol Dextrose (Glutose 15) 0 gm PO ONCE PRN; Protocol PRN Reason: Hypoglycemia Protocol Enoxaparin Sodium (Lovenox) 40 mg SC DAILY [facility] Last Admin: 01/10/19 09:16 Dose: 40 mg Glimepiride (Amaryl) 4 mg PO ACB [facility] Last Admin: 01/10/19 08:25 Dose: 4 mg Glucagon (Glucagen Diagnostic Kit) 0 mg IM STAT PRN; Protocol PRN Reason: Hypoglycemia Protocol Hydromorphone HCl (Dilaudid) 2 mg IVP Q8H PRN PRN Reason: Pain, severe (8-10) Dextrose (Dextrose 5% In Water 1000 Ml) 1,000 mls @ 0 mls/hr IV .Q0M PRN; Protocol PRN Reason: Hypoglycemia Protocol Insulin Aspart (Novolog) 0 unit SC ACHS [facility]; Protocol Last Admin: 01/10/19 12:24 Dose: 1 u Metformin HCl (Glucophage) 850 mg PO [facility]CC [facility] Last Admin: 01/10/19 08:20 Dose: 850 mg Naproxen (Anaprox Ds) 550 mg PO Q12 [facility] Last Admin: 01/10/19 09:15 Dose: 550 mg Pantoprazole Sodium (Protonix Ec Tab) 40 mg PO DAILY [facility] Last Admin: 01/10/19 09:15 Dose: 40 mg Rosuvastatin Calcium (Crestor) 10 mg PO HS [facility] Last Admin: 01/09/19 22:03 Dose: 10 mg Senna/Docusate Sodium (Senokot S 50 Mg-8.6 Mg) 1 tab PO DAILY [facility] Last Admin: 01/10/19 09:16 Dose: Not Given Sitagliptin Phosphate (Januvia) 100 mg PO DAILY [facility] Last Admin: 01/10/19 09:15 Dose: 100 mg - Labs Labs: 01/08/19 07:52 01/08/19 07:52 PT 11.0 SECONDS (9.7-12.2) 01/05/19 11:09 INR 1.0 01/05/19 11:09 APTT 36 SECONDS (21-34) H 01/05/19 11:09 - Constitutional Appears: Well - Head Exam Head Exam: ATRAUMATIC, NORMAL INSPECTION, NORMOCEPHALIC - Eye Exam Eye Exam: EOMI, Normal appearance, PERRL Pupil Exam: NORMAL ACCOMODATION, PERRL - ENT Exam ENT Exam: Mucous Membranes Moist, Normal Exam - Neck Exam Neck Exam: Full ROM, Normal Inspection. absent: Lymphadenopathy - Respiratory Exam Respiratory Exam: Decreased Breath Sounds - Cardiovascular Exam Cardiovascular Exam: REGULAR RHYTHM, +S1, +S2 - GI/Abdominal Exam GI & Abdominal Exam: Soft, Diminished Bowel Sounds - Rectal Exam Rectal Exam: Deferred
[2019-01-11] MEDS: (Novolog) Insulin Aspart, Recombinant 100 u/ml 10 ml vial SC SCH ×4 (07:07→21:21)
[2019-01-11] MEDS: Naproxen 550 mg Tab PO SCH ×2 (09:17→21:41)
[2019-01-11] MEDS: Docusate-Senna 50 mg-8.6 mg Tab PO SCH (09:17)
[2019-01-11] MEDS: Pantoprazole 40 mg EC Tab PO SCH (09:17)
[2019-01-11] MEDS: Enoxaparin 40 mg Syringe SC SCH (09:18)
[2019-01-11 11:47] LABS: BASO # 0.1 K/uL (0.0-0.2); BASO % 0.6 % (0.0-2.0); EOS # 0.8 K/uL (0.0-0.7); EOS % 7.7 % (0.0-4.0); HEMOGLOBIN 13.6 g/dL (12.0-18.0); LYMPH # 1.2 K/uL (1.0-4.3); LYMPH % 11.6 % (20.0-40.0); MEAN CELL VOLUME 81.1 fL (80.0-94.0); MEAN CORPUSCULAR HEMOGLOBIN 27.1 pg (27.0-31.0); MEAN CORPUSCULAR HGB CONC 33.4 g/dL (33.0-37.0); MEAN PLATELET VOLUME 8.8 fL (7.2-11.7); MONO # 0.5 K/uL (0.0-0.8); MONO % 4.8 % (0.0-10.0); NEUT # 7.5 K/uL (1.8-7.0); NEUT % 75.3 % (50.0-75.0); RBC 5.01 Mil/uL (4.40-5.90); RED CELL DISTRIBUTION WIDTH 14.2 % (11.5-14.5)
[2019-01-11 12:04] LABS: ALB/GLOB RATIO 1.6 (1.0-2.1); ALT/SGPT 18 U/L (21-72); AST/SGOT 22 U/L (17-59); BLOOD UREA NITROGEN 10 mg/dL (9-20); CALCIUM 9.3 mg/dl (8.6-10.4); GFR NON-AFRICAN AMERICAN > 60
--- NOTE | 2019-01-11 14:26 | CP.PCM.PN ---
Subjective - Date & Time of Evaluation Date of Evaluation: 01/11/19 Time of Evaluation: 14:23 - Subjective Subjective: Medicine Progress Note - Dr Haider Olivares's service Patient seen and examined at bedside. Per nursing no acute events overnight. Patient is doing well, states that he has right knee swelling. He denies any other complaints at this time. Objective - Vital Signs/Intake and Output Vital Signs (last 24 hours): Temp Pulse Resp BP Pulse Ox 97.9 F 69 16 133/78 99 01/11/19 07:41 01/11/19 07:41 01/11/19 07:41 01/11/19 07:41 01/11/19 07:41 - Medications Medications: Current Medications Dextrose (Dextrose 50% Inj) 0 ml IV STAT PRN; Protocol PRN Reason: Hypoglycemia Protocol Dextrose (Glutose 15) 0 gm PO ONCE PRN; Protocol PRN Reason: Hypoglycemia Protocol Enoxaparin Sodium (Lovenox) 40 mg SC DAILY [facility] Last Admin: 01/11/19 09:18 Dose: 40 mg Glimepiride (Amaryl) 4 mg PO ACB [facility] Last Admin: 01/11/19 08:10 Dose: 4 mg Glucagon (Glucagen Diagnostic Kit) 0 mg IM STAT PRN; Protocol PRN Reason: Hypoglycemia Protocol Hydromorphone HCl (Dilaudid) 2 mg IVP Q8H PRN PRN Reason: Pain, severe (8-10) Dextrose (Dextrose 5% In Water 1000 Ml) 1,000 mls @ 0 mls/hr IV .Q0M PRN; Protocol PRN Reason: Hypoglycemia Protocol Insulin Aspart (Novolog) 0 unit SC ACHS [facility]; Protocol Last Admin: 01/11/19 12:30 Dose: Not Given Metformin HCl (Glucophage) 850 mg PO BIDCC [facility] Last Admin: 01/11/19 08:10 Dose: 850 mg Naproxen (Anaprox Ds) 550 mg PO Q12 [facility] Last Admin: 01/11/19 09:17 Dose: 550 mg Pantoprazole Sodium (Protonix Ec Tab) 40 mg PO DAILY [facility] Last Admin: 01/11/19 09:17 Dose: 40 mg Rosuvastatin Calcium (Crestor) 10 mg PO HS [facility] Last Admin: 01/10/19 21:35 Dose: 10 mg Senna/Docusate Sodium (Senokot S 50 Mg-8.6 Mg) 1 tab PO DAILY [facility] Last Admin: 01/11/19 09:17 Dose: Not Given Sitagliptin Phosphate (Januvia) 100 mg PO DAILY [facility] Last Admin: 01/11/19 09:17 Dose: 100 mg - Labs Labs: 01/11/19 11:36 01/11/19 11:36 PT 11.0 SECONDS (9.7-12.2) 01/05/19 11:09 INR 1.0 01/05/19 11:09 APTT 36 SECONDS (21-34) H 01/05/19 11:09 - Constitutional Appears: Non-toxic, No Acute Distress - Head Exam Head Exam: ATRAUMATIC, NORMAL INSPECTION, NORMOCEPHALIC - Eye Exam Eye Exam: EOMI, Normal appearance Pupil Exam: NORMAL ACCOMODATION - ENT Exam ENT Exam: Mucous Membranes Moist - Neck Exam Neck Exam: Full ROM - Respiratory Exam Respiratory Exam: Clear to Ausculation Bilateral, NORMAL BREATHING PATTERN. absent: Rales, Rhonchi, Wheezes - Cardiovascular Exam Cardiovascular Exam: REGULAR RHYTHM, +S1, +S2 - GI/Abdominal Exam GI & Abdominal Exam: Soft. absent: Guarding, Rigid, Tenderness - Extremities Exam Additional comments: Right knee immobilizer in place - Neurological Exam Neurological Exam: Alert, Awake, Oriented x3 - Psychiatric Exam Psychiatric exam: Normal Affect, Normal Mood - Skin Skin Exam: Normal Color, Warm Additional comments: +vitiligo Assessment and Plan - Assessment and Plan (Free Text) Assessment: 53 year old male with PMHx of DM, TB, and HLD admitted for evaluation and treatment of Right ACL,PCL,MCL repair. Plan: Right Knee ACL,PCL,LCL tear -Stable, afebrile -Patient is currently awaiting hinge brace -Continue physical therapy -Pain control as needed -Ortho on consult, Dr Cipriano Fay, help appreciated Diabetes Mellitus -Home Glimepiride 4mg PO ACB -Home Metformin 850mg PO BID (held) -Home Januvia 100mg PO Daily -Hypoglycemia protocol ordered Hyperlipidemia -Home Crestor 10mg PO HS [facility] GI/DVT Ppx -Protonix -Lovenox Dispo: Will F/U with Ortho about plan for any surgery. Plan discussed with Dr Haider Gay DO PGY-2
--- NOTE | 2019-01-11 15:11 | CP.PCM.PN ---
Subjective - Date & Time of Evaluation Date of Evaluation: 01/11/19 Time of Evaluation: 13:00 - Subjective Subjective: Patient seen and examined at bedside. No changes since last seen 3 days ago. Has not yet received postop hinged knee brace. Spoke to charge nurse Mayra who will follow up. Objective - Vital Signs/Intake and Output Vital Signs (last 24 hours): Temp Pulse Resp BP Pulse Ox 97.9 F 69 16 133/78 99 01/11/19 07:41 01/11/19 07:41 01/11/19 07:41 01/11/19 07:41 01/11/19 07:41 - Medications Medications: Current Medications Dextrose (Dextrose 50% Inj) 0 ml IV STAT PRN; Protocol PRN Reason: Hypoglycemia Protocol Dextrose (Glutose 15) 0 gm PO ONCE PRN; Protocol PRN Reason: Hypoglycemia Protocol Enoxaparin Sodium (Lovenox) 40 mg SC DAILY [facility] Last Admin: 01/11/19 09:18 Dose: 40 mg Glimepiride (Amaryl) 4 mg PO ACB [facility] Last Admin: 01/11/19 08:10 Dose: 4 mg Glucagon (Glucagen Diagnostic Kit) 0 mg IM STAT PRN; Protocol PRN Reason: Hypoglycemia Protocol Dextrose (Dextrose 5% In Water 1000 Ml) 1,000 mls @ 0 mls/hr IV .Q0M PRN; Protocol PRN Reason: Hypoglycemia Protocol Insulin Aspart (Novolog) 0 unit SC ACHS [facility]; Protocol Last Admin: 01/11/19 12:30 Dose: Not Given Metformin HCl (Glucophage) 850 mg PO BIDCC [facility] Last Admin: 01/11/19 08:10 Dose: 850 mg Naproxen (Anaprox Ds) 550 mg PO Q12 [facility] Last Admin: 01/11/19 09:17 Dose: 550 mg Pantoprazole Sodium (Protonix Ec Tab) 40 mg PO DAILY [facility] Last Admin: 01/11/19 09:17 Dose: 40 mg Rosuvastatin Calcium (Crestor) 10 mg PO HS [facility] Last Admin: 01/10/19 21:35 Dose: 10 mg Senna/Docusate Sodium (Senokot S 50 Mg-8.6 Mg) 1 tab PO DAILY [facility] Last Admin: 01/11/19 09:17 Dose: Not Given Sitagliptin Phosphate (Januvia) 100 mg PO DAILY [facility] Last Admin: 01/11/19 09:17 Dose: 100 mg - Labs Labs: 01/11/19 11:36 01/11/19 11:36 PT 11.0 SECONDS (9.7-12.2) 01/05/19 11:09 INR 1.0 01/05/19 11:09 APTT 36 SECONDS (21-34) H 01/05/19 11:09 - Extremities Exam Additional comments: R knee: knee imm in place no lesions/swelling/erythema sensation intact SP/DP/TN motor intact EHL/FHL/TA/G pedal pulse intact calves soft NT B/l Assessment and Plan (1) Dislocation, knee Assessment & Plan: Strict knee immobilizer until postop hinged knee brace obtained PT/OT WBAT orthopedically stable for discharge once brace received above d/w Dr. Burton in agreement Status: Acute
--- NOTE | 2019-01-11 20:01 | CP.PCM.PN ---
Subjective - Date & Time of Evaluation Date of Evaluation: 01/11/19 Time of Evaluation: 08:00 - Subjective Subjective: clinically same Objective - Vital Signs/Intake and Output Vital Signs (last 24 hours): Temp Pulse Resp BP Pulse Ox 98.1 F 75 20 160/85 H 99 01/11/19 16:00 01/11/19 16:00 01/11/19 16:00 01/11/19 16:00 01/11/19 07:41 - Medications Medications: Current Medications Dextrose (Dextrose 50% Inj) 0 ml IV STAT PRN; Protocol PRN Reason: Hypoglycemia Protocol Dextrose (Glutose 15) 0 gm PO ONCE PRN; Protocol PRN Reason: Hypoglycemia Protocol Enoxaparin Sodium (Lovenox) 40 mg SC DAILY [facility] Last Admin: 01/11/19 09:18 Dose: 40 mg Glimepiride (Amaryl) 4 mg PO ACB [facility] Last Admin: 01/11/19 08:10 Dose: 4 mg Glucagon (Glucagen Diagnostic Kit) 0 mg IM STAT PRN; Protocol PRN Reason: Hypoglycemia Protocol Dextrose (Dextrose 5% In Water 1000 Ml) 1,000 mls @ 0 mls/hr IV .Q0M PRN; Protocol PRN Reason: Hypoglycemia Protocol Insulin Aspart (Novolog) 0 unit SC ACHS [facility]; Protocol Last Admin: 01/11/19 17:54 Dose: Not Given Metformin HCl (Glucophage) 850 mg PO BIDCC [facility] Last Admin: 01/11/19 17:54 Dose: 850 mg Naproxen (Anaprox Ds) 550 mg PO Q12 [facility] Last Admin: 01/11/19 09:17 Dose: 550 mg Pantoprazole Sodium (Protonix Ec Tab) 40 mg PO DAILY [facility] Last Admin: 01/11/19 09:17 Dose: 40 mg Rosuvastatin Calcium (Crestor) 10 mg PO HS [facility] Last Admin: 01/10/19 21:35 Dose: 10 mg Senna/Docusate Sodium (Senokot S 50 Mg-8.6 Mg) 1 tab PO DAILY [facility] Last Admin: 01/11/19 09:17 Dose: Not Given Sitagliptin Phosphate (Januvia) 100 mg PO DAILY [facility] Last Admin: 01/11/19 09:17 Dose: 100 mg - Labs Labs: 01/11/19 11:36 01/11/19 11:36 PT 11.0 SECONDS (9.7-12.2) 01/05/19 11:09 INR 1.0 01/05/19 11:09 APTT 36 SECONDS (21-34) H 01/05/19 11:09 - Constitutional Appears: Well - Head Exam Head Exam: ATRAUMATIC, NORMAL INSPECTION, NORMOCEPHALIC - Eye Exam Eye Exam: EOMI, Normal appearance, PERRL Pupil Exam: NORMAL ACCOMODATION, PERRL - ENT Exam ENT Exam: Mucous Membranes Moist, Normal Exam - Neck Exam Neck Exam: Full ROM, Normal Inspection. absent: Lymphadenopathy - Respiratory Exam Respiratory Exam: Decreased Breath Sounds - Cardiovascular Exam Cardiovascular Exam: REGULAR RHYTHM, +S1, +S2 - GI/Abdominal Exam GI & Abdominal Exam: Soft, Diminished Bowel Sounds - Rectal Exam Rectal Exam: Deferred
[2019-01-12 07:27] LABS: BASO # 0.1 K/uL (0.0-0.2); BASO % 0.8 % (0.0-2.0); EOS # 0.6 K/uL (0.0-0.7); EOS % 7.1 % (0.0-4.0); HEMOGLOBIN 13.6 g/dL (12.0-18.0); LYMPH % 11.6 % (20.0-40.0); MEAN CELL VOLUME 81.8 fL (80.0-94.0); MEAN CORPUSCULAR HEMOGLOBIN 27.5 pg (27.0-31.0); MEAN CORPUSCULAR HGB CONC 33.6 g/dL (33.0-37.0); MEAN PLATELET VOLUME 8.9 fL (7.2-11.7); MONO # 0.6 K/uL (0.0-0.8); MONO % 7.2 % (0.0-10.0); NEUT # 6.6 K/uL (1.8-7.0); NEUT % 73.3 % (50.0-75.0); RBC 4.96 Mil/uL (4.40-5.90); RED CELL DISTRIBUTION WIDTH 14.3 % (11.5-14.5)
[2019-01-12 07:41] VITALS: BP 132/80; PULSE 77; RESP 18; TEMP 97.9; O2SAT 98
[2019-01-12 08:07] LABS: ALB/GLOB RATIO 1.5 (1.0-2.1); ALBUMIN 3.8 g/dL (3.5-5.0); ALT/SGPT 20 U/L (21-72); AST/SGOT 23 U/L (17-59); BLOOD UREA NITROGEN 10 mg/dL (9-20); CALCIUM 9.2 mg/dl (8.6-10.4); GFR NON-AFRICAN AMERICAN > 60
[2019-01-12] MEDS: (Novolog) Insulin Aspart, Recombinant 100 u/ml 10 ml vial SC SCH ×2 (08:22→12:30)
[2019-01-12] MEDS: Pantoprazole 40 mg EC Tab PO SCH (10:11)
[2019-01-12] MEDS: Enoxaparin 40 mg Syringe SC SCH (10:11)
[2019-01-12] MEDS: Naproxen 550 mg Tab PO SCH (10:11)
[2019-01-12] MEDS: Docusate-Senna 50 mg-8.6 mg Tab PO SCH (10:11)
--- NOTE | 2019-01-12 11:25 | CP.PCM.PN ---
Subjective - Date & Time of Evaluation Date of Evaluation: 01/12/19 Time of Evaluation: 10:00 - Subjective Subjective: Patient seen and examined at bedside. No acute changes since yesterday. Pain is well controlled and he has tolerated PT well with knee in immobilizer. Brace has not arrived despite several attempts to contact purchasing. Objective - Vital Signs/Intake and Output Vital Signs (last 24 hours): Temp Pulse Resp BP Pulse Ox 97.9 F 77 18 132/80 98 01/12/19 07:40 01/12/19 07:40 01/12/19 07:40 01/12/19 07:40 01/12/19 07:40 Intake and Output: 01/12/19 01/12/19 06:59 18:59 Intake Total 600 Balance 600 - Medications Medications: Current Medications Dextrose (Dextrose 50% Inj) 0 ml IV STAT PRN; Protocol PRN Reason: Hypoglycemia Protocol Dextrose (Glutose 15) 0 gm PO ONCE PRN; Protocol PRN Reason: Hypoglycemia Protocol Enoxaparin Sodium (Lovenox) 40 mg SC DAILY [facility] Last Admin: 01/12/19 10:11 Dose: 40 mg Glimepiride (Amaryl) 4 mg PO ACB [facility] Last Admin: 01/12/19 08:11 Dose: 4 mg Glucagon (Glucagen Diagnostic Kit) 0 mg IM STAT PRN; Protocol PRN Reason: Hypoglycemia Protocol Insulin Aspart (Novolog) 0 unit SC ACHS [facility]; Protocol Last Admin: 01/12/19 08:22 Dose: Not Given Metformin HCl (Glucophage) 850 mg PO BIDCC [facility] Last Admin: 01/12/19 08:11 Dose: 850 mg Naproxen (Anaprox Ds) 550 mg PO Q12 [facility] Last Admin: 01/12/19 10:11 Dose: 550 mg Pantoprazole Sodium (Protonix Ec Tab) 40 mg PO DAILY [facility] Last Admin: 01/12/19 10:11 Dose: 40 mg Rosuvastatin Calcium (Crestor) 10 mg PO HS [facility] Last Admin: 01/11/19 21:40 Dose: 10 mg Senna/Docusate Sodium (Senokot S 50 Mg-8.6 Mg) 1 tab PO DAILY [facility] Last Admin: 01/11/19 09:17 Dose: Not Given Sitagliptin Phosphate (Januvia) 100 mg PO DAILY [facility] Last Admin: 01/12/19 10:11 Dose: 100 mg - Labs Labs: 01/12/19 07:14 01/12/19 07:14 PT 11.0 SECONDS (9.7-12.2) 01/05/19 11:09 INR 1.0 01/05/19 11:09 APTT 36 SECONDS (21-34) H 01/05/19 11:09 - Extremities Exam Additional comments: R knee: knee imm in place no lesions/swelling/erythema sensation intact SP/DP/TN motor intact EHL/FHL/TA/G pedal pulse intact calves soft NT B/l Assessment and Plan (1) Dislocation, knee Assessment & Plan: Patient with R knee multi-ligament tear (ACL/PCL/MCL) -Patient was given a Rx to obtain postop hinged knee brace as outpatient from [employer]. The brace will be locked in 0 deg extension. -Strict knee immobilizer until postop hinged knee brace obtained -PT/OT WBAT -orthopedically stable for discharge to home -patient will follow up with orthopedist in network, appt made for this week -above d/w Dr. Burton in agreement Status: Acute
--- NOTE | 2019-01-12 14:08 | CP.PCM.PN ---
Subjective - Date & Time of Evaluation Date of Evaluation: 01/12/19 Time of Evaluation: 14:06 - Subjective Subjective: Medicine Progress Note - Dr Haider Olivares's service Patient seen and examined at bedside. Per nursing no acute events overnight. Patient is doing well, states that icing his knee has helped the swelling. Offers no complaints at this time. Denies headaches, dizziness, cp, palpitations, sob, abdominal pain, urinary symptoms. Objective - Vital Signs/Intake and Output Vital Signs (last 24 hours): Temp Pulse Resp BP Pulse Ox 97.9 F 77 18 132/80 98 01/12/19 07:40 01/12/19 07:40 01/12/19 07:40 01/12/19 07:40 01/12/19 07:40 Intake and Output: 01/12/19 01/12/19 06:59 18:59 Intake Total 600 Balance 600 - Medications Medications: Current Medications Dextrose (Dextrose 50% Inj) 0 ml IV STAT PRN; Protocol PRN Reason: Hypoglycemia Protocol Dextrose (Glutose 15) 0 gm PO ONCE PRN; Protocol PRN Reason: Hypoglycemia Protocol Enoxaparin Sodium (Lovenox) 40 mg SC DAILY [facility] Last Admin: 01/12/19 10:11 Dose: 40 mg Glimepiride (Amaryl) 4 mg PO ACB [facility] Last Admin: 01/12/19 08:11 Dose: 4 mg Glucagon (Glucagen Diagnostic Kit) 0 mg IM STAT PRN; Protocol PRN Reason: Hypoglycemia Protocol Insulin Aspart (Novolog) 0 unit SC ACHS [facility]; Protocol Last Admin: 01/12/19 12:30 Dose: Not Given Metformin HCl (Glucophage) 850 mg PO BIDCC [facility] Last Admin: 01/12/19 08:11 Dose: 850 mg Naproxen (Anaprox Ds) 550 mg PO Q12 [facility] Last Admin: 01/12/19 10:11 Dose: 550 mg Pantoprazole Sodium (Protonix Ec Tab) 40 mg PO DAILY [facility] Last Admin: 01/12/19 10:11 Dose: 40 mg Rosuvastatin Calcium (Crestor) 10 mg PO HS [facility] Last Admin: 01/11/19 21:40 Dose: 10 mg Senna/Docusate Sodium (Senokot S 50 Mg-8.6 Mg) 1 tab PO DAILY [facility] Last Admin: 01/12/19 10:11 Dose: Not Given Sitagliptin Phosphate (Januvia) 100 mg PO DAILY [facility] Last Admin: 01/12/19 10:11 Dose: 100 mg - Labs Labs: 01/12/19 07:14 01/12/19 07:14 PT 11.0 SECONDS (9.7-12.2) 01/05/19 11:09 INR 1.0 01/05/19 11:09 APTT 36 SECONDS (21-34) H 01/05/19 11:09 - Additional Findings Additional findings: - Constitutional Appears: Non-toxic, No Acute Distress - Head Exam Head Exam: ATRAUMATIC, NORMAL INSPECTION, NORMOCEPHALIC - Eye Exam Eye Exam: EOMI, Normal appearance Pupil Exam: NORMAL ACCOMODATION - ENT Exam ENT Exam: Mucous Membranes Moist - Neck Exam Neck Exam: Full ROM - Respiratory Exam Respiratory Exam: Clear to Ausculation Bilateral, NORMAL BREATHING PATTERN. absent: Rales, Rhonchi, Wheezes - Cardiovascular Exam Cardiovascular Exam: REGULAR RHYTHM, +S1, +S2 - GI/Abdominal Exam GI & Abdominal Exam: Soft. absent: Guarding, Rigid, Tenderness - Extremities Exam Additional comments: Right knee immobilizer in place, moves all extremities, sensation intact, +pedal pulses - Neurological Exam Neurological Exam: Alert, Awake, Oriented x3 - Psychiatric Exam Psychiatric exam: Normal Affect, Normal Mood - Skin Skin Exam: Normal Color, Warm Additional comments: +vitiligo Assessment and Plan - Assessment and Plan (Free Text) Assessment: 53 year old male with PMHx of DM, TB, and HLD admitted for evaluation and treatment of Right ACL,PCL,MCL repair. Plan: Right Knee ACL,PCL,LCL tear -Stable, afebrile -Patient is currently awaiting hinge brace -Continue physical therapy -Pain control as needed -Ortho on consult, Dr Cipriano Fay, help appreciated Diabetes Mellitus -Home Glimepiride 4mg PO ACB -Home Metformin 850mg PO BID (held) -Home Januvia 100mg PO Daily -Hypoglycemia protocol ordered Hyperlipidemia -Home Crestor 10mg PO HS [facility] GI/DVT Ppx -Protonix -Lovenox Dispo: Patient is medically stable for discharge home. Patient provided prescription for hinge brace. He is to follow up with Dr Olivares outpatient. Plan discussed with Dr Haider Gay DO PGY-2
== END 2019-01-12 17:38 | disposition home or self-care (01) | DRG 254 ==
LOC: C.ER 09:44 → C.9E 12:18 → C.5S 13:01
PROVIDERS: ADMIT Internal Medicine Nephrology; ATTEND Internal Medicine Nephrology
DX: S82.001A Unspecified fracture of right patella, initial encounter for closed fracture (principal); W19.XXXA Unspecified fall, initial encounter; Z86.11 Personal history of tuberculosis; E78.5 Hyperlipidemia, unspecified; E11.9 Type 2 diabetes mellitus without complications; S83.511A Sprain of anterior cruciate ligament of right knee, initial encounter; S83.411A Sprain of medial collateral ligament of right knee, initial encounter